=== PATIENT | male | born 1985 | race Two or more races ===

== ENCOUNTER 2023-06-19 21:31 | Emergency (ER) | payer OTHER ==
[~2023-06-19] VITALS: Ht 170.2 cm; Wt 81.8 kg
[2023-06-19 22:34] VITALS: BP 130/90; PULSE 110; RESP 18; TEMP 98.4
[2023-06-19] MEDS ORDERED: IBUPROFEN 600 MG TABLET PO ONE (23:00)
[2023-06-19] MEDS ORDERED: ACETAMINOPHEN 500 MG TABLET PO ONE (23:00)
[2023-06-19] MEDS ORDERED: ACET-66 PO (23:28)
[2023-06-19] MEDS ORDERED: IBUP-1554 PO (23:28)
== END 2023-06-20 00:08 | disposition home or self-care (01) ==
LOC: EMS 21:32
DX: S63.502A Unspecified sprain of left wrist, initial encounter (principal); H33.20 Serous retinal detachment, unspecified eye; Z59.00 Homelessness unspecified; W01.0XXA Fall on same level from slipping, tripping and stumbling without subsequent striking against object, initial encounter; Y93.89 Activity, other specified; Y92.89 Other specified places as the place of occurrence of the external cause; Y99.8 Other external cause status
CPT/HCPCS: 99283